=== PATIENT | male | born 1955 | race Caucasian/White ===

== ENCOUNTER 2024-02-21 09:40 | Outpatient (REF) | payer OTHER, SELFPAY ==
--- NOTE | ~2024-02-21 | XR_ITS ---
EXAMINATION: XR CHEST CLINICAL INFORMATION: Chest pain radiating to the back. COMPARISON: Chest radiograph dated 08/05/2014. TECHNIQUE: 2 views of the chest were obtained. FINDINGS: No airspace consolidation. No pleural effusion or pneumothorax. Unremarkable cardiomediastinal silhouette. Multilevel bridging endplate osteophytes throughout the thoracic spine. XR/XR chest 2V IMPRESSION: 1. No acute cardiopulmonary findings. 2. Multilevel bridging endplate osteophytes throughout the thoracic spine which can be seen in the setting of diffuse idiopathic skeletal hyperostosis. Electronically signed by: Phillip Mathias MD 02/21/2024 11:55 AM EDT
[2024-02-21 14:13] LABS: MANUAL DIFF FLAG NO
[2024-02-21 14:17] LABS: Appearance Urine Clear; Color Urine Yellow; Glucose Urine UA Negative (Negative); Leukocyte Esterase Urine Negative (Negative); Nitrite Urine Negative (Negative); PH 5.5 (5.0-9.0); Specific Gravity - Urine 1.025 (1.005-1.025); Urine Blood Negative (Negative); Urine Ketones Trace mg/dL (Negative); Urine Protein Trace mg/dL (Neg-Trace)
[2024-02-21 14:20] LABS: Bacteria Urine None Seen (None Seen); Hyaline Casts Urine 0-2 /LPF (0-2); RBC Urine 0-2 /HPF (0-2); Squamous Epithelial Cell Urine 0-2 /HPF (0-2); WBC Urine 0-5 /HPF (0-5)
[2024-02-21 14:27] LABS: Basophils Absolute Auto 0.1 X10*3/uL (0.0-0.2); Basophils Percent Auto 0.7 % (0-2); Eosinophils Absolute Auto 0.4 X10*3/uL (0.0-0.4); Eosinophils Percent Auto 4.3 % (0-4); Hematocrit 42.1 % (42.0-52.0); Hemoglobin 14.1 g/dl (14.0-18.0); Imm Gran Abs Auto 0.03 X10*3/uL (0.00-0.03); Imm Gran Pct Auto 0.3 % (0.0-0.4); Lymphocytes Absolute Auto 2.7 X10*3/uL (1.2-4.9); Lymphocytes Percent Auto 27.7 % (20-40); Mean Corpuscular HGB Conc 33.5 g/dl (31.0-36.0); Mean Corpuscular Hemoglobin 30.3 pg (27.0-33.0); Mean Corpuscular Volume 90.3 fL (80.0-98.0); Mean Platelet Volume 9.7 fL (9.4-12.4); Monocytes Absolute Auto 0.7 X10*3/uL (0.1-1.2); Monocytes Percent Auto 6.9 % (2-11); Neutrophils Absolute Auto 5.8 x10*3/uL (2.0-8.3); Neutrophils Percent Auto 60.1 % (45-73); Platelet Count 266 X10*3/uL (160-400); Red Blood Count 4.66 X10*6/uL (4.60-5.80); Red Cell Distribution Width 12.2 % (11.0-16.0); White Blood Count 9.6 X10*3/uL (4.8-10.8)
[2024-02-21 14:37] LABS: Estimated Average Glucose 128 mg/dL; Hemoglobin A1C 151.1043 umol/L; Hemoglobin A1c % 6.1 % (<6.0); Total Hemoglobin (HGBA1C) 3471.6163 umol/L
[2024-02-21 14:45] LABS: Creatinine Urine 217.11 mg/dL; Microalbum/Creatinine Ratio Ur 27.6 ug/mg cr (<30)
[2024-02-21 15:02] LABS: Anion Gap 12 (12-20); TSH reflex Free T4 1.62 uIU/mL (0.32-4.0)
[2024-02-21 15:07] LABS: Alanine Aminotransferase 34 U/L (0-40); Albumin Level 4.2 g/dL (3.5-5.0); Alkaline Phosphatase 81 U/L (39-117); Aspartate Amino Transferase 24 U/L (5-37); Bilirubin Direct 0.3 mg/dL (0.0-0.5); Bilirubin Total 0.6 mg/dL (0.0-1.0); Blood Urea Nitrogen 13 mg/dL (9-16); Carbon Dioxide 28 mmol/L (22-29); Chloride 106 mmol/L (96-108); Cholesterol 135 mg/dL (<200); Estimated Glomerular Filt Rate > 60; Glucose Fasting 114 mg/dL (60-99); HDL Cholesterol 28 mg/dL (>40); LDL Cholesterol Calculated 71 mg/dL (<100); Lipase 28 U/L (8-78); Potassium 4.1 mmol/L (3.3-5.1); Sodium 142 mmol/L (135-145); Total Protein 7.7 g/dL (6.5-8.0); Triglycerides 183 mg/dL (<150)
== END 2024-02-21 09:41 | disposition home or self-care (01) ==
LOC: HO.CHCLDS 09:40
PROVIDERS: Visit Provider Pediatrics
DX: I10 Essential (primary) hypertension (principal); E11.9 Type 2 diabetes mellitus without complications; R07.9 Chest pain, unspecified
CPT/HCPCS: 36415; 71046; 80048; 80061; 80076; 81001; 82043; 82570; 83036; 83690; 84443; 85025

== ENCOUNTER 2024-03-06 10:34 | Outpatient (REF) | payer OTHER, SELFPAY ==
--- NOTE | ~2024-03-06 | XR_ITS ---
EXAMINATION: XR CERVICAL SPINE. XR THORACIC SPINE. XR LUMBAR SPINE. CLINICAL INFORMATION: Back pain COMPARISON: None. TECHNIQUE: 5 views of the cervical spine. AP and lateral views of the thoracic spine. 3 views of the lumbar spine. FINDINGS: Cervical spine: Mild to moderate multilevel degenerative disc disease with anterior endplate osteophytes. Uncovertebral hypertrophy with neural foraminal narrowing demonstrated on the right at C5-C6 and C6-C7. No fracture. Normal alignment and cervical lordosis. No prevertebral soft tissue swelling. Thoracic spine: Normal alignment and thoracic kyphosis with no fracture. There are anterior bridging osteophytes throughout the mid and distal thoracic spine compatible with diffuse idiopathic skeletal hyperostosis. Lumbar spine: Normal alignment and lumbar lordosis. No fracture. Mild degenerative disc disease. XR/XR thoracic spine 2V IMPRESSION: CERVICAL SPINE: Mild to moderate multilevel degenerative disc disease. Right neural foraminal narrowing at C5-C6 and C6-C7. THORACIC SPINE: Multilevel degenerative disc disease with diffuse idiopathic skeletal hyperostosis (DISH). No acute abnormality. LUMBAR SPINE: Mild multilevel degenerative disc disease. Electronically signed by: Nain Guadarrama MD 03/06/2024 12:04 PM EDT
--- NOTE | ~2024-03-06 | XR_ITS ---
EXAMINATION: XR CERVICAL SPINE. XR THORACIC SPINE. XR LUMBAR SPINE. CLINICAL INFORMATION: Back pain COMPARISON: None. TECHNIQUE: 5 views of the cervical spine. AP and lateral views of the thoracic spine. 3 views of the lumbar spine. FINDINGS: Cervical spine: Mild to moderate multilevel degenerative disc disease with anterior endplate osteophytes. Uncovertebral hypertrophy with neural foraminal narrowing demonstrated on the right at C5-C6 and C6-C7. No fracture. Normal alignment and cervical lordosis. No prevertebral soft tissue swelling. Thoracic spine: Normal alignment and thoracic kyphosis with no fracture. There are anterior bridging osteophytes throughout the mid and distal thoracic spine compatible with diffuse idiopathic skeletal hyperostosis. Lumbar spine: Normal alignment and lumbar lordosis. No fracture. Mild degenerative disc disease. XR/XR cervical spine 4V IMPRESSION: CERVICAL SPINE: Mild to moderate multilevel degenerative disc disease. Right neural foraminal narrowing at C5-C6 and C6-C7. THORACIC SPINE: Multilevel degenerative disc disease with diffuse idiopathic skeletal hyperostosis (DISH). No acute abnormality. LUMBAR SPINE: Mild multilevel degenerative disc disease. Electronically signed by: Nain Guadarrama MD 03/06/2024 12:04 PM EDT
--- NOTE | ~2024-03-06 | XR_ITS ---
EXAMINATION: XR CERVICAL SPINE. XR THORACIC SPINE. XR LUMBAR SPINE. CLINICAL INFORMATION: Back pain COMPARISON: None. TECHNIQUE: 5 views of the cervical spine. AP and lateral views of the thoracic spine. 3 views of the lumbar spine. FINDINGS: Cervical spine: Mild to moderate multilevel degenerative disc disease with anterior endplate osteophytes. Uncovertebral hypertrophy with neural foraminal narrowing demonstrated on the right at C5-C6 and C6-C7. No fracture. Normal alignment and cervical lordosis. No prevertebral soft tissue swelling. Thoracic spine: Normal alignment and thoracic kyphosis with no fracture. There are anterior bridging osteophytes throughout the mid and distal thoracic spine compatible with diffuse idiopathic skeletal hyperostosis. Lumbar spine: Normal alignment and lumbar lordosis. No fracture. Mild degenerative disc disease. XR/XR lumbar spine 2-3V IMPRESSION: CERVICAL SPINE: Mild to moderate multilevel degenerative disc disease. Right neural foraminal narrowing at C5-C6 and C6-C7. THORACIC SPINE: Multilevel degenerative disc disease with diffuse idiopathic skeletal hyperostosis (DISH). No acute abnormality. LUMBAR SPINE: Mild multilevel degenerative disc disease. Electronically signed by: Nain Guadarrama MD 03/06/2024 12:04 PM EDT
== END 2024-03-06 10:35 | disposition home or self-care (01) ==
LOC: HO.HHCX 10:34
PROVIDERS: Visit Provider Pediatrics
DX: M54.9 Dorsalgia, unspecified (principal); M54.2 Cervicalgia
CPT/HCPCS: 72050; 72070; 72100

== ENCOUNTER 2024-03-13 09:48 | Outpatient (REF) | payer OTHER, SELFPAY ==
--- NOTE | ~2024-03-13 | US_ITS ---
EXAMINATION: US ABDOMEN LIMITED CLINICAL INFORMATION: Gallbladder mass seen on previous ultrasound done at another facility. COMPARISON: None available. TECHNIQUE: Real-time imaging of the right upper quadrant abdominal viscera. FINDINGS: PANCREAS: Portions of the pancreatic head and distal pancreatic tail are obscured by overlying bowel gas, remainder of the pancreas is unremarkable. LIVER: The liver is normal in size and contour. There is diffusely increased liver parenchymal echogenicity consistent with hepatic steatosis. Evaluation for focal hepatic lesion in the setting of underlying steatosis is limited however no obvious focal hepatic lesion is seen. Small areas of hypoechoic echogenicity adjacent to the gallbladder represent focal areas of fatty infiltration. GALLBLADDER: The gallbladder is physiologically distended. The gallbladder is filled with multiple stones. There is strong posterior acoustic shadowing from multiple stones in the gallbladder. The visualized wall of the gallbladder is not thickened. No pericholecystic fluid. COMMON BILE DUCT: The visualized common bile duct is normal in caliber measuring 0.3 cm in diameter. No filling defect is noted in the visualized common bile duct. RIGHT KIDNEY: The kidney is normal in size. There is normal renal parenchymal echogenicity and cortical thickness. No hydronephrosis or renal calculi. The kidney measures 12.6 cm in maximum dimension. There is a partially exophytic 2.8 x 2.5 x 3.4 cm simple cyst from the mid to lower kidney posteriorly. A second exophytic cyst without internal vascularity is noted from the mid right kidney anteriorly measuring 0.8 x 0.6 x 0.8 cm. FREE FLUID: None. US/US abdomen limited IMPRESSION: 1. Cholelithiasis without sonographic evidence of acute cholecystitis. 2. Hepatic steatosis. 3. Right renal cysts, for which no further imaging follow-up is warranted. Electronically signed by: Pablo Naranjo MD 03/13/2024 04:53 PM EDT
== END 2024-03-13 09:49 | disposition home or self-care (01) ==
LOC: HO.US 09:48
PROVIDERS: PCP Internal Medicine; Visit Provider Pediatrics
DX: K82.8 Other specified diseases of gallbladder (principal)
CPT/HCPCS: 76705